=== PATIENT | female | born 1930 | race Caucasian/White ===

== ENCOUNTER 2016-05-09 07:25 | Day surgery (SDC) | payer MEDICARE, BC ==
[~2016-05-09] VITALS: Ht 160 cm; Wt 63.0 kg
[~2016-05-09 07:25] MED LIST: COREG6.25 MG PO; FISH OIL OR; FISH OIL PO; FOSINOPRIL SODI40 MG PO; GLUCOSAMINE & C1 CAP; LIPITOR20 MG PO; MEGACE40 MG PO; MULTIVITAMIN PO; NORVASC10 MG PO; OS-CAL500 MG PO; SODIUM BICARBO650 MG; SODIUM BICARBO650 MG NG; VITAMIN D3 OR; ZYRTEC10 MG PO; [UNRECOGNIZED DRUG - OTHER] PO
[2016-05-09 07:57] LABS: BASOPHILS 0.7 % (0.0-2.0); EOSINOPHILS 5.9 % (0-7); IMMATURE GRANULOCYTES 0.3 % (0-5); MCHC 32.4 g/dL (31.0-37.0); MCV 95.6 fL (80.0-100.0); MEAN PLATELET VOLUME 8.8 fL (7.4-10.4); MONOCYTES 8.7 % (2-11); NEUTROPHILS 52.4 % (40-80); PLATELET COUNT 197 10x3/uL (130-400); RBC 3.87 10x6/uL (4.00-5.40); RDW 14.7 % (11.5-14.5); WBC 7.1 10x3/uL (4.8-10.8)
[2016-05-09 08:05] LABS: ANION GAP 16.1 mmol/L (8-16); CALCIUM 8.9 mg/dL (8.5-10.1); CARBON DIOXIDE 24.3 mmol/L (21.0-32.0); CREATININE - SERUM 1.9 mg/dL (0.6-1.3); POTASSIUM - SERUM 4.4 mmol/L (3.5-5.1)
[2016-05-09 08:20] LABS: APTT 34.1 SECONDS (22.8-39.4); INR 0.97 (0.85-1.17); PROTIME 12.7 SECONDS (11.6-15.0)
[2016-05-09] MEDS ORDERED: ARICEPT5 MG PO (08:28)
[2016-05-09] MEDS ORDERED: CO Q-10200 MG PO (08:28)
[2016-05-09 08:54] VITALS: Ht 160 cm; Wt 63.0 kg
--- NOTE | 2016-05-09 09:27 | NUR ---
0920 LAB VALUES CHECKED & CLEARED PER NEPHROLOGY PARAMETERS. Kaiden PFEIFFER R.N.
[2016-05-09] MEDS ORDERED: ULTRAM50 MG PO (10:30)
--- NOTE | 2016-05-09 10:57 | NUR ---
1050 DR. ARELLANO ROUNDS, ICE CAP TO ABDOMEN.
--- NOTE | 2016-05-14 07:35 | OP ---
PATIENT NAME: GENE OLIVAREZ V MEDICAL RECORD: [id number] :30 LOCATION:[facility] ADMISSION DATE: SURGEON: MORENA ARELLANO MD DATE OF OPERATION: 05/09/2016 PREOPERATIVE DIAGNOSIS: Chronic kidney disease stage IV with improving renal function after 3 years, on peritoneal dialysis, now not requiring dialysis. POSTOPERATIVE DIAGNOSIS: Chronic kidney disease stage IV with improving renal function after 3 years, on peritoneal dialysis, now not requiring dialysis. OPERATION PERFORMED: Removal of peritoneal dialysis catheter. SURGEON: Morena Arellano M.D. ANESTHESIA: Local 1% lidocaine with epinephrine and Marcaine ____ with epinephrine and IV sedation with propofol per PLASMA SPECIALIST. REFERRING PHYSICIAN: Dr. Venu Samaniego. PREOPERATIVE NOTE: Ms. Olivarez is a very nice 85-year-old lady whose kidneys have improved and she has stopped dialysis. She is to have her PD catheter removed today. Under IV sedation in supine position, the patient was prepped and draped in a sterile manner and the skin and subcutaneous tissues were anesthetized with local as needed. A transverse incision was placed about midway between the exit site and the entry site transverse scar on the right side of the abdomen. The subcutaneous tissues were divided with electrocautery and the catheter exposed and the superficial cuff dissected from the surrounding fatty tissues and the catheter transected and the external portion removed. With traction on the remaining catheter, the deeper of the 2 Dacron felt cuffs were freed from the rectus muscle and the remaining catheter was removed without difficulty and discarded. There was no evidence visibly of infection. The fascial defect in the anterior rectus sheath was closed with interrupted [id number] 2-0 Vicryl. The wound was irrigated with saline and infiltrated with Marcaine and then closed with interrupted inverted 3-0 Vicryl and running intracuticular 4-0 Monocryl. The wound was sealed and closed further with Dermabond glue and dressed with Maxorb Ag, Tegaderm and Cavilon skin prep. Antibiotic ointment was applied to the old exit site and that was also covered with Maxorb Ag, Tegaderm and Cavilon skin prep. The patient was awakened and taken back to the outpatient department in stable condition. There was no blood loss during the procedure and all sponges, instruments, and needles were accounted for. No drain was used. Blood loss was insignificant and unreplaced. ADDENDUM: The patient will be resuming her preop medications and diet, and appointment scheduled for her to see me in my office in 2 weeks and she was given a prescription for tramadol 50 mg tablets #20 one p.o. q. 4 hours p.r.n. pain. 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
== END 2016-05-09 13:01 | disposition home or self-care (01) ==
LOC: D.OPS 07:25
PROVIDERS: Anesthesiology
DX: Z49.02 Encounter for fitting and adjustment of peritoneal dialysis catheter (principal); N18.4 Chronic kidney disease, stage 4 (severe)